=== PATIENT | female | born 1985 | race Caucasian/White ===

== ENCOUNTER 2020-07-14 10:14 | Emergency (ER) | payer SELFPAY ==
[~2020-07-14] VITALS: Ht 157.5 cm; Wt 62.6 kg
[2020-07-14 10:18] VITALS: BP 138/94
--- NOTE | 2020-07-14 10:23 | NUR ---
PATIENT BIB [place] [employer] FOR PREBOOK CLEARANCE. PT YELLING AND UNCOOPERATIVE AT THIS TIME. NO MEDICAL COMPLAINTS. VSS
[2020-07-14 10:30] VITALS: BP 138/94
--- NOTE | 2020-07-14 10:31 | NUR ---
PATIENT [facility] [facility]. PATIENT EXAMINED BY DR. MARQUES. PATIENT MEDICALLY CLEARED AND RELEASED IN CUSTODY IN STABLE CONDITION. ORIGINAL PRE-BOOK FORM GIVEN TO OFFICER BENSON.
== END 2020-07-14 10:29 ==
LOC: MED 10:14
DX: I10 Essential (primary) hypertension (principal); Z02.89 Encounter for other administrative examinations; Z88.2 Allergy status to sulfonamides
CPT/HCPCS: 99283